=== PATIENT | female | born 1945 | race Caucasian/White ===

== ENCOUNTER → 2017-08-20 | Outpatient (CLI) | payer OTHER, BC | LOC: HYPER 07:07 | DX: L89.153 Pressure ulcer of sacral region, stage 3 (principal); L89.890 Pressure ulcer of other site, unstageable; I87.2 Venous insufficiency (chronic) (peripheral); I73.00 Raynaud's syndrome without gangrene; J45.909 Unspecified asthma, uncomplicated; I10 Essential (primary) hypertension; I73.9 Peripheral vascular disease, unspecified; K21.9 Gastro-esophageal reflux disease without esophagitis; M19.90 Unspecified osteoarthritis, unspecified site; M81.0 Age-related osteoporosis without current pathological fracture; Z79.01 Long term (current) use of anticoagulants; Z86.73 Personal history of transient ischemic attack (TIA), and cerebral infarction without residual deficits; Z86.718 Personal history of other venous thrombosis and embolism; Z98.49 Cataract extraction status, unspecified eye ==

== ENCOUNTER → 2017-09-17 | Outpatient (CLI) | payer OTHER, BC | LOC: HYPER 07:05 | DX: L89.153 Pressure ulcer of sacral region, stage 3 (principal); L89.890 Pressure ulcer of other site, unstageable; I10 Essential (primary) hypertension; I87.2 Venous insufficiency (chronic) (peripheral); L84 Corns and callosities; I73.00 Raynaud's syndrome without gangrene; I73.9 Peripheral vascular disease, unspecified; M19.90 Unspecified osteoarthritis, unspecified site; M81.0 Age-related osteoporosis without current pathological fracture; K21.9 Gastro-esophageal reflux disease without esophagitis; J45.909 Unspecified asthma, uncomplicated; Z86.718 Personal history of other venous thrombosis and embolism; Z86.73 Personal history of transient ischemic attack (TIA), and cerebral infarction without residual deficits ==

== ENCOUNTER → 2017-10-17 | Outpatient (CLI) | payer OTHER, BC | LOC: HYPER 06:42 | DX: L89.153 Pressure ulcer of sacral region, stage 3 (principal); I87.2 Venous insufficiency (chronic) (peripheral); R60.0 Localized edema; I73.00 Raynaud's syndrome without gangrene; J45.909 Unspecified asthma, uncomplicated; I10 Essential (primary) hypertension; I73.9 Peripheral vascular disease, unspecified; M19.90 Unspecified osteoarthritis, unspecified site; Z86.718 Personal history of other venous thrombosis and embolism; Z86.73 Personal history of transient ischemic attack (TIA), and cerebral infarction without residual deficits ==

== ENCOUNTER → 2017-11-21 | Outpatient (CLI) | payer OTHER, BC | LOC: HYPER 06:45 | DX: L89.153 Pressure ulcer of sacral region, stage 3 (principal); L89.890 Pressure ulcer of other site, unstageable; I87.2 Venous insufficiency (chronic) (peripheral); I73.00 Raynaud's syndrome without gangrene; I10 Essential (primary) hypertension; K21.9 Gastro-esophageal reflux disease without esophagitis; M19.90 Unspecified osteoarthritis, unspecified site; M81.0 Age-related osteoporosis without current pathological fracture; J45.909 Unspecified asthma, uncomplicated; Z86.718 Personal history of other venous thrombosis and embolism; Z86.73 Personal history of transient ischemic attack (TIA), and cerebral infarction without residual deficits; Z98.49 Cataract extraction status, unspecified eye ==

== ENCOUNTER → 2017-12-12 | Outpatient (CLI) | payer OTHER, BC | LOC: HYPER 07:04 | DX: L89.153 Pressure ulcer of sacral region, stage 3 (principal); L89.890 Pressure ulcer of other site, unstageable; I87.2 Venous insufficiency (chronic) (peripheral); I10 Essential (primary) hypertension; I73.00 Raynaud's syndrome without gangrene; L84 Corns and callosities; I73.9 Peripheral vascular disease, unspecified; K21.9 Gastro-esophageal reflux disease without esophagitis; M19.90 Unspecified osteoarthritis, unspecified site; M81.0 Age-related osteoporosis without current pathological fracture; J45.909 Unspecified asthma, uncomplicated; Z86.73 Personal history of transient ischemic attack (TIA), and cerebral infarction without residual deficits; Z98.49 Cataract extraction status, unspecified eye; Z86.718 Personal history of other venous thrombosis and embolism ==

== ENCOUNTER 2018-05-10 12:14 | Emergency (ER) | payer OTHER, BC ==
[~2018-05-10] VITALS: Ht 160 cm; Wt 86.6 kg
--- NOTE | ~2018-05-10 | EKG ---
[address] [address] ELECTROCARDIOGRAM REPORT Name: JEAN CALLEJAS KYLAH [facility] #: [id number] Admission: 05/10/18 Attend Phys: Discharge: 05/10/18 Date of : 45 Report #: [id number] THIS REPORT FOR: //name// [facility] ED Test Date: 2018-05-10 Test Time: 12:22:43 Pat Name: JEAN CALLEJAS Department: Room: Gender: F [employer]: ANAT : 1945 Requested By: Jaun Huertas Order Number: [id number] MD: Oj Dyson Measurements Intervals [place] Rate: 62 P: 35 SC: 166 QRS: 18 QRSD: 82 T: 51 QT: 438 QTc: 445 Interpretive Statements Sinus rhythm No previous ECG available for comparison Electronically Signed On 05-11-2018 20:39:33 [employer] by Oj Dyson [email or web address] <ELECTRONICALLY SIGNED> By: Oj Dyson MD 05/11/18 2039 1222 1222 Oj Dyson MD /AAKASH
[2018-05-10 12:46] LABS: CALCIUM 9.3 mg/dL (8.5-10.1); CREATININE 0.8 mg/dL (0.6-1.0); POTASSIUM 4.1 mmol/L (3.5-5.1)
[2018-05-10] MEDS ORDERED: COZAAR 25 MG TA25 M1 PO (12:47)
[2018-05-10] MEDS ORDERED: PENTOXIFYLLINE400 MG PO (12:47)
[2018-05-10] MEDS ORDERED: ZANAFLEX2 MG PO (12:47)
[2018-05-10] MEDS ORDERED: PYRIDOSTIGMINE60 MG PO (12:47)
[2018-05-10] MEDS ORDERED: PILOCARPINE HCL5 M1 PO (12:48)
[2018-05-10] MEDS ORDERED: NEXIUM40 MG PO (12:48)
[2018-05-10] MEDS ORDERED: TIROSINT13 MCG PO (12:48)
[2018-05-10] MEDS ORDERED: ASPIR 8181 MG PO (12:49)
[2018-05-10] MEDS ORDERED: NORVASC2.5 MG PO (12:49)
[2018-05-10 12:51] LABS: HEMATOCRIT 38.9 % (37.0-47.0); HEMOGLOBIN 12.9 gm/dL (12.0-15.0); MCV 90.9 fL (80.0-100.0); PLATELET COUNT 284 thou/uL (150-400); RBC 4.28 mil/uL (4.20-5.00); RDW 15.8 % (10.5-14.5); WBC 12.5 thou/uL (4.0-11.0)
[2018-05-10 13:06] VITALS: BP 169/94
[2018-05-10 13:35] LABS: ABSOLUTE NEUTROPHILS 9.6 thou/uL (1.4-8.2); ATYPICAL LYMPHS 8 %
[2018-05-10] MEDS ORDERED: ZOFRAN ODT4 MG PO (14:15)
== END 2018-05-10 21:23 | disposition home or self-care (01) ==
LOC: ER 12:14
PROVIDERS: Physician Assistant
DX: R11.0 Nausea (principal); R51 Headache; R06.02 Shortness of breath; Z91.041 Radiographic dye allergy status; Z88.8 Allergy status to other drugs, medicaments and biological substances

== ENCOUNTER → 2020-07-21 | Outpatient (CLI) | payer OTHER, BC ==
[~2020-07-21] MED LIST: ASPIR 8181 MG PO; COZAAR 25 MG TA25 M1 PO; NEXIUM40 MG PO; NORVASC2.5 MG PO; PENTOXIFYLLINE400 MG PO; PILOCARPINE HCL5 M1 PO; PYRIDOSTIGMINE60 MG PO; TIROSINT13 MCG PO; ZANAFLEX2 MG PO; ZOFRAN ODT4 MG PO
== END ==
LOC: HYPER 10:04
PROVIDERS: ATTEND Emergency Medicine
DX: I87.333 Chronic venous hypertension (idiopathic) with ulcer and inflammation of bilateral lower extremity (principal); L97.822 Non-pressure chronic ulcer of other part of left lower leg with fat layer exposed; L97.512 Non-pressure chronic ulcer of other part of right foot with fat layer exposed; L21.8 Other seborrheic dermatitis; L29.8 Other pruritus; L30.9 Dermatitis, unspecified; E06.9 Thyroiditis, unspecified; E03.8 Other specified hypothyroidism; E66.9 Obesity, unspecified; E03.9 Hypothyroidism, unspecified; E80.4 Gilbert syndrome; I73.9 Peripheral vascular disease, unspecified; R60.0 Localized edema; I89.0 Lymphedema, not elsewhere classified; C44.01 Basal cell carcinoma of skin of lip; C23 Malignant neoplasm of gallbladder; D50.9 Iron deficiency anemia, unspecified; I00 Rheumatic fever without heart involvement; G70.00 Myasthenia gravis without (acute) exacerbation; I73.00 Raynaud's syndrome without gangrene; I65.29 Occlusion and stenosis of unspecified carotid artery; J45.909 Unspecified asthma, uncomplicated; K21.9 Gastro-esophageal reflux disease without esophagitis; M79.3 Panniculitis, unspecified; M54.16 Radiculopathy, lumbar region; M79.7 Fibromyalgia; M19.90 Unspecified osteoarthritis, unspecified site; M81.0 Age-related osteoporosis without current pathological fracture; M35.00 Sjogren syndrome, unspecified; Z96.641 Presence of right artificial hip joint; Z86.718 Personal history of other venous thrombosis and embolism; Z96.651 Presence of right artificial knee joint; Z86.73 Personal history of transient ischemic attack (TIA), and cerebral infarction without residual deficits; Z98.49 Cataract extraction status, unspecified eye; Z68.41 Body mass index [BMI] 40.0-44.9, adult

== ENCOUNTER → 2020-08-17 | Outpatient (CLI) | payer OTHER, BC | LOC: HYPER 13:21 | PROVIDERS: ATTEND Emergency Medicine | DX: I87.333 Chronic venous hypertension (idiopathic) with ulcer and inflammation of bilateral lower extremity (principal); L97.822 Non-pressure chronic ulcer of other part of left lower leg with fat layer exposed; L97.512 Non-pressure chronic ulcer of other part of right foot with fat layer exposed; S80.822A Blister (nonthermal), left lower leg, initial encounter; L21.8 Other seborrheic dermatitis; L29.8 Other pruritus; L30.9 Dermatitis, unspecified; E06.9 Thyroiditis, unspecified; E03.8 Other specified hypothyroidism; E66.9 Obesity, unspecified; E03.9 Hypothyroidism, unspecified; E80.4 Gilbert syndrome; I73.9 Peripheral vascular disease, unspecified; R60.0 Localized edema; I89.0 Lymphedema, not elsewhere classified; C44.01 Basal cell carcinoma of skin of lip; C23 Malignant neoplasm of gallbladder; D50.9 Iron deficiency anemia, unspecified; I00 Rheumatic fever without heart involvement; G70.00 Myasthenia gravis without (acute) exacerbation; I73.00 Raynaud's syndrome without gangrene; I65.29 Occlusion and stenosis of unspecified carotid artery; J45.909 Unspecified asthma, uncomplicated; K21.9 Gastro-esophageal reflux disease without esophagitis; M79.3 Panniculitis, unspecified; M54.16 Radiculopathy, lumbar region; M79.7 Fibromyalgia; M19.90 Unspecified osteoarthritis, unspecified site; M81.0 Age-related osteoporosis without current pathological fracture; M35.00 Sjogren syndrome, unspecified; Z86.718 Personal history of other venous thrombosis and embolism; Z98.49 Cataract extraction status, unspecified eye; Z68.41 Body mass index [BMI] 40.0-44.9, adult; X58.XXXA Exposure to other specified factors, initial encounter; Y93.89 Activity, other specified; Y92.89 Other specified places as the place of occurrence of the external cause; Y99.8 Other external cause status ==

== ENCOUNTER → 2020-08-31 | Outpatient (CLI) | payer OTHER, BC | LOC: HYPER 13:41 | PROVIDERS: ATTEND Emergency Medicine | DX: I87.333 Chronic venous hypertension (idiopathic) with ulcer and inflammation of bilateral lower extremity (principal); L97.822 Non-pressure chronic ulcer of other part of left lower leg with fat layer exposed; L97.512 Non-pressure chronic ulcer of other part of right foot with fat layer exposed; S80.822D Blister (nonthermal), left lower leg, subsequent encounter; L21.8 Other seborrheic dermatitis; L29.8 Other pruritus; L30.9 Dermatitis, unspecified; E06.9 Thyroiditis, unspecified; E03.8 Other specified hypothyroidism; E66.9 Obesity, unspecified; E03.9 Hypothyroidism, unspecified; E80.4 Gilbert syndrome; I73.9 Peripheral vascular disease, unspecified; R60.0 Localized edema; I89.0 Lymphedema, not elsewhere classified; C44.01 Basal cell carcinoma of skin of lip; C23 Malignant neoplasm of gallbladder; D50.9 Iron deficiency anemia, unspecified; I00 Rheumatic fever without heart involvement; G70.00 Myasthenia gravis without (acute) exacerbation; I73.00 Raynaud's syndrome without gangrene; I65.29 Occlusion and stenosis of unspecified carotid artery; J45.909 Unspecified asthma, uncomplicated; K21.9 Gastro-esophageal reflux disease without esophagitis; M79.3 Panniculitis, unspecified; M54.16 Radiculopathy, lumbar region; M79.7 Fibromyalgia; M19.90 Unspecified osteoarthritis, unspecified site; M81.0 Age-related osteoporosis without current pathological fracture; M35.00 Sjogren syndrome, unspecified; Z86.718 Personal history of other venous thrombosis and embolism; Z98.49 Cataract extraction status, unspecified eye; X58.XXXD Exposure to other specified factors, subsequent encounter ==

== ENCOUNTER → 2020-09-21 | Outpatient (CLI) | payer OTHER, BC | LOC: HYPER 13:39 | PROVIDERS: ATTEND Emergency Medicine | DX: I87.333 Chronic venous hypertension (idiopathic) with ulcer and inflammation of bilateral lower extremity (principal); L97.822 Non-pressure chronic ulcer of other part of left lower leg with fat layer exposed; L97.522 Non-pressure chronic ulcer of other part of left foot with fat layer exposed; L97.512 Non-pressure chronic ulcer of other part of right foot with fat layer exposed; S80.822D Blister (nonthermal), left lower leg, subsequent encounter; L21.8 Other seborrheic dermatitis; L29.8 Other pruritus; L30.9 Dermatitis, unspecified; E06.9 Thyroiditis, unspecified; E03.8 Other specified hypothyroidism; E66.9 Obesity, unspecified; E03.9 Hypothyroidism, unspecified; E80.4 Gilbert syndrome; I73.9 Peripheral vascular disease, unspecified; R60.0 Localized edema; I89.0 Lymphedema, not elsewhere classified; C44.01 Basal cell carcinoma of skin of lip; C23 Malignant neoplasm of gallbladder; D50.9 Iron deficiency anemia, unspecified; I00 Rheumatic fever without heart involvement; G70.00 Myasthenia gravis without (acute) exacerbation; I73.00 Raynaud's syndrome without gangrene; I65.29 Occlusion and stenosis of unspecified carotid artery; J45.909 Unspecified asthma, uncomplicated; K21.9 Gastro-esophageal reflux disease without esophagitis; M79.3 Panniculitis, unspecified; M54.16 Radiculopathy, lumbar region; M79.7 Fibromyalgia; M19.90 Unspecified osteoarthritis, unspecified site; M81.0 Age-related osteoporosis without current pathological fracture; M35.00 Sjogren syndrome, unspecified; Z68.41 Body mass index [BMI] 40.0-44.9, adult; Z86.718 Personal history of other venous thrombosis and embolism; X58.XXXD Exposure to other specified factors, subsequent encounter ==

== ENCOUNTER → 2021-02-20 | Outpatient (CLI) | payer OTHER, BC | LOC: HYPER 08:24 | PROVIDERS: ATTEND Emergency Medicine | DX: L97.511 Non-pressure chronic ulcer of other part of right foot limited to breakdown of skin (principal); I89.0 Lymphedema, not elsewhere classified; R60.9 Edema, unspecified; L21.8 Other seborrheic dermatitis; L29.8 Other pruritus; L30.9 Dermatitis, unspecified; R60.0 Localized edema; C44.01 Basal cell carcinoma of skin of lip; C23 Malignant neoplasm of gallbladder; D50.9 Iron deficiency anemia, unspecified; E03.8 Other specified hypothyroidism; E06.9 Thyroiditis, unspecified; E80.4 Gilbert syndrome; G70.00 Myasthenia gravis without (acute) exacerbation; I87.2 Venous insufficiency (chronic) (peripheral); I73.9 Peripheral vascular disease, unspecified; I10 Essential (primary) hypertension; I00 Rheumatic fever without heart involvement; I73.00 Raynaud's syndrome without gangrene; I65.29 Occlusion and stenosis of unspecified carotid artery; J45.909 Unspecified asthma, uncomplicated; K21.9 Gastro-esophageal reflux disease without esophagitis; M79.7 Fibromyalgia; M79.3 Panniculitis, unspecified; M54.16 Radiculopathy, lumbar region; M35.00 Sjogren syndrome, unspecified; M81.0 Age-related osteoporosis without current pathological fracture; M19.90 Unspecified osteoarthritis, unspecified site; H26.9 Unspecified cataract; E66.9 Obesity, unspecified; Z86.718 Personal history of other venous thrombosis and embolism; Z68.41 Body mass index [BMI] 40.0-44.9, adult ==

== ENCOUNTER → 2021-04-13 | Outpatient (CLI) | payer OTHER, BC | LOC: HYPER 09:01 | PROVIDERS: ATTEND Emergency Medicine | DX: L97.511 Non-pressure chronic ulcer of other part of right foot limited to breakdown of skin (principal); I89.0 Lymphedema, not elsewhere classified; R60.9 Edema, unspecified; L21.8 Other seborrheic dermatitis; L29.8 Other pruritus; L30.9 Dermatitis, unspecified; R60.0 Localized edema; C44.01 Basal cell carcinoma of skin of lip; C23 Malignant neoplasm of gallbladder; D50.9 Iron deficiency anemia, unspecified; E03.8 Other specified hypothyroidism; E06.9 Thyroiditis, unspecified; E80.4 Gilbert syndrome; E66.9 Obesity, unspecified; G70.00 Myasthenia gravis without (acute) exacerbation; H26.9 Unspecified cataract; I87.2 Venous insufficiency (chronic) (peripheral); I73.9 Peripheral vascular disease, unspecified; I10 Essential (primary) hypertension; I00 Rheumatic fever without heart involvement; I73.00 Raynaud's syndrome without gangrene; I65.29 Occlusion and stenosis of unspecified carotid artery; J45.909 Unspecified asthma, uncomplicated; K21.9 Gastro-esophageal reflux disease without esophagitis; M79.7 Fibromyalgia; M79.3 Panniculitis, unspecified; M54.16 Radiculopathy, lumbar region; M35.00 Sjogren syndrome, unspecified; M81.0 Age-related osteoporosis without current pathological fracture; Z86.718 Personal history of other venous thrombosis and embolism; Z68.41 Body mass index [BMI] 40.0-44.9, adult ==

== ENCOUNTER → 2021-05-04 | Outpatient (CLI) | payer OTHER, BC | LOC: HYPER 10:50 | PROVIDERS: ATTEND Emergency Medicine | DX: L97.311 Non-pressure chronic ulcer of right ankle limited to breakdown of skin (principal); L97.321 Non-pressure chronic ulcer of left ankle limited to breakdown of skin; I87.2 Venous insufficiency (chronic) (peripheral); I89.0 Lymphedema, not elsewhere classified; R60.9 Edema, unspecified; I73.9 Peripheral vascular disease, unspecified; M79.3 Panniculitis, unspecified; L21.8 Other seborrheic dermatitis; L29.8 Other pruritus; C44.01 Basal cell carcinoma of skin of lip; E66.9 Obesity, unspecified; I10 Essential (primary) hypertension; J45.909 Unspecified asthma, uncomplicated; D50.9 Iron deficiency anemia, unspecified; E06.9 Thyroiditis, unspecified; C23 Malignant neoplasm of gallbladder; I00 Rheumatic fever without heart involvement; M79.7 Fibromyalgia; G70.00 Myasthenia gravis without (acute) exacerbation; E03.8 Other specified hypothyroidism; I73.00 Raynaud's syndrome without gangrene; E80.4 Gilbert syndrome; I65.29 Occlusion and stenosis of unspecified carotid artery; M54.16 Radiculopathy, lumbar region; H35.00 Unspecified background retinopathy; H26.9 Unspecified cataract; K21.9 Gastro-esophageal reflux disease without esophagitis; M19.90 Unspecified osteoarthritis, unspecified site; M81.0 Age-related osteoporosis without current pathological fracture; M54.10 Radiculopathy, site unspecified; M35.00 Sjogren syndrome, unspecified; Z68.41 Body mass index [BMI] 40.0-44.9, adult; Z86.718 Personal history of other venous thrombosis and embolism; Z86.14 Personal history of Methicillin resistant Staphylococcus aureus infection; Z86.73 Personal history of transient ischemic attack (TIA), and cerebral infarction without residual deficits; Z79.899 Other long term (current) drug therapy ==

== ENCOUNTER → 2021-06-22 | Outpatient (CLI) | payer OTHER, BC | LOC: HYPER 12:46 | PROVIDERS: ATTEND Emergency Medicine | DX: L97.311 Non-pressure chronic ulcer of right ankle limited to breakdown of skin (principal); L97.321 Non-pressure chronic ulcer of left ankle limited to breakdown of skin; L03.115 Cellulitis of right lower limb; L03.116 Cellulitis of left lower limb; I89.0 Lymphedema, not elsewhere classified; I87.2 Venous insufficiency (chronic) (peripheral); R60.9 Edema, unspecified; I73.9 Peripheral vascular disease, unspecified; M79.3 Panniculitis, unspecified; L21.8 Other seborrheic dermatitis; L29.8 Other pruritus; L30.9 Dermatitis, unspecified; C44.01 Basal cell carcinoma of skin of lip; L84 Corns and callosities; I10 Essential (primary) hypertension; J45.909 Unspecified asthma, uncomplicated; D50.9 Iron deficiency anemia, unspecified; E06.9 Thyroiditis, unspecified; C23 Malignant neoplasm of gallbladder; I00 Rheumatic fever without heart involvement; M79.7 Fibromyalgia; G70.00 Myasthenia gravis without (acute) exacerbation; E03.8 Other specified hypothyroidism; I73.00 Raynaud's syndrome without gangrene; E80.4 Gilbert syndrome; I65.29 Occlusion and stenosis of unspecified carotid artery; M54.16 Radiculopathy, lumbar region; H35.00 Unspecified background retinopathy; H26.9 Unspecified cataract; M35.00 Sjogren syndrome, unspecified; K21.9 Gastro-esophageal reflux disease without esophagitis; M19.90 Unspecified osteoarthritis, unspecified site; M81.0 Age-related osteoporosis without current pathological fracture; E66.9 Obesity, unspecified; Z68.41 Body mass index [BMI] 40.0-44.9, adult; Z86.718 Personal history of other venous thrombosis and embolism; Z86.14 Personal history of Methicillin resistant Staphylococcus aureus infection; Z86.73 Personal history of transient ischemic attack (TIA), and cerebral infarction without residual deficits; Z79.899 Other long term (current) drug therapy ==